=== PATIENT | female | born 2000 | race African-American/Black ===

== ENCOUNTER 2019-03-24 20:21 | Emergency (ER) | payer MEDICAID ==
[~2019-03-24] VITALS: Ht 160 cm; Wt 65.0 kg
[2019-03-25] MEDS ORDERED: HYDROCODONE/ACETAMINOPHEN 5/325MG TABLET PO ONE (00:15)
[2019-03-25] MEDS ORDERED: IBUPROFEN 600MG TABLET PO ONE (00:15)
[2019-03-25 00:22] VITALS: BP 134/79
== END 2019-03-25 00:25 | disposition home or self-care (01) ==
LOC: ER 20:21
DX: S09.8XXA Other specified injuries of head, initial encounter (principal); W22.8XXA Striking against or struck by other objects, initial encounter; Y93.89 Activity, other specified; Y92.89 Other specified places as the place of occurrence of the external cause; Y99.0 Civilian activity done for income or pay; R03.0 Elevated blood-pressure reading, without diagnosis of hypertension
CPT/HCPCS: 99283; Z7610